=== PATIENT | female | born 1990 | race Two or more races ===

== ENCOUNTER 2024-08-15 14:13 | Emergency (ER) | payer MEDICAID ==
[~2024-08-15] VITALS: Ht 167.6 cm; Wt 56.0 kg
[2024-08-15 15:04] LABS: BASOPHILS % (AUTO) 0.8 % (0-1); EOSINOPHILS % (AUTO) 0.3 % (0-6); HEMATOCRIT 40.1 % (35.0-45.0); HEMOGLOBIN 13.3 g/dl (12.0-16.0); LYMPHOCYTES # (AUTO) 1.2 X10'3 (1.1-4.8); LYMPHOCYTES % (AUTO) 18.6 % (21-51); MEAN CORPUSCULAR HEMOGLOBIN 27.4 PG (27.0-31.0); MEAN CORPUSCULAR HGB CONC 33.2 g/dL (33.0-36.5); MEAN CORPUSCULAR VOLUME 82.5 FL (78-98); MEAN PLATELET VOLUME 9.6 FL (7.4-10.4); MONOCYTES # (AUTO) 0.7 X10'3 (0-0.9); MONOCYTES % (AUTO) 11.2 % (2-12); NEUTROPHILS # (AUTO) 4.4 X10'3 (1.8-7.7); NEUTROPHILS % (AUTO) 69.1 % (42-75); PLATELET COUNT 183 X10'3 (140-440); RED BLOOD COUNT 4.86 X10'6 (4.20-5.60); WHITE BLOOD COUNT 6.4 X10'3 (4.5-11.0)
[2024-08-15 15:22] LABS: ALANINE AMINOTRANSFERASE 24 U/L (12-78); ALBUMIN/GLOBULIN RATIO 0.9 (1.1-1.5); ALKALINE PHOSPHATASE 53 IU/L (46-116); AMYLASE 60 U/L (25-115); ANION GAP 12 (8-16); ASPARTATE AMINO TRANSFERASE 14 U/L (10-37); BILIRUBIN,TOTAL 0.6 MG/DL (0.1-1.0); BLOOD UREA NITROGEN 9 MG/DL (7-18); BUN/CREATININE RATIO 12.2 (10.0-20.0); CALCIUM 9.2 MG/DL (8.5-10.1); CHLORIDE 102 MMOL/L (99-107); CREATININE 0.74 MG/DL (0.40-0.90); GLUCOSE 90 MG/DL (70-104); LIPASE 22 U/L (16-77); POTASSIUM 3.7 MMOL/L (3.5-5.1); SODIUM 136 MMOL/L (135-145); TOTAL CARBON DIOXIDE 21.7 MMOL/L (24-32); TOTAL PROTEIN 8.4 G/DL (6.4-8.2); eCRCL 96 ML/MIN; eGFR > 90 ML/MIN
[2024-08-15 15:51] LABS: BILIRUBIN,URINE NEGATIVE (Neg); CLARITY,URINE CLOUDY (Clear); COLOR,URINE YELLOW (Yellow); GLUCOSE, URINE NEGATIVE (Neg); KETONES,URINE 40 mg/dl (Neg); LEUKOCYTE ESTERASE ,URINE MODERATE (Neg); NITRITES, URINE NEGATIVE (Neg); OCCULT BLOOD,URINE NEGATIVE (Neg); PH,URINE 8.5 (4.8-8.0); PROTEIN,URINE TRACE mg/dl (Neg); UROBILINOGEN,URINE 0.2 E.U/dL (0.2-1.0)
[2024-08-15 15:52] LABS: URINE HCG NEGATIVE (NEG)
[2024-08-15 15:57] LABS: UA COLLECTION TYPE CLN CATCH MIDSTREAM
[2024-08-15 16:09] LABS: BACTERIA,URINE 1+ /HPF (Neg); MUCUS STRANDS FEW /LPF (Neg); RBC,URINE 0-2 /HPF (0-2); RENAL CELLS, URINE FEW /HPF; SQUAMOUS EPITHELIAL CELL,UR MODERATE /LPF (FEW); TRANSITIONAL EPI CELLS,URINE FEW /HPF; WBC,URINE 20-30 /HPF (0-4)
[2024-08-15] MEDS: LORazepam 1 MG tablet PO ONE (16:09)
[2024-08-15 16:10] LABS: URINE AMPHETAMINE SCREEN NEGATIVE (Neg); URINE BARBITUATE SCREEN NEGATIVE (Neg); URINE BENZODIAZEPINES SCREEN NEGATIVE (Neg); URINE CANNABINOID SCREEN POSITIVE (Neg); URINE COCAINE SCREEN NEGATIVE (Neg); URINE METHADONE SCREEN NEGATIVE (Neg); URINE OPIATE SCREEN NEGATIVE (Neg); URINE PHENCYCLIDINE SCREEN NEGATIVE (Neg)
[2024-08-15 18:12] VITALS: BP 115/71; PULSE 100; RESP 18; O2SAT 99
== END 2024-08-15 18:11 | disposition home or self-care (01) ==
LOC: ER 14:14
DX: F45.8 Other somatoform disorders (principal); F41.0 Panic disorder [episodic paroxysmal anxiety]; F32.A Depression, unspecified
CPT/HCPCS: 36415; 80053; 80305; 81001; 81025; 82150; 83690; 85025; 87088; 93005; 99284